=== PATIENT | male | born 1965 | race Caucasian/White ===

== ENCOUNTER 2022-04-10 05:57 | Inpatient (IN) | payer OTHER ==
[~2022-04-10] VITALS: Ht 172.7 cm; Wt 111.3 kg
[2022-04-10] MEDS ORDERED: ACETAMINOPHEN WITH CODEINE 300/30MG TABLET PO ONE (06:30)
[2022-04-10] MEDS ORDERED: COLCHICINE 0.6MG TABLET PO ONE (06:45)
[2022-04-10] MEDS ORDERED: MORPHINE SULFATE 4 MG/ML CPJ (NOT FOR IM USE) IV ONE (08:45)
[2022-04-10 09:10] LABS: BASOPHILS % 0.7 % (0.0-2.0); EOSINOPHILS % 1.6 % (0.0-5.0); HEMATOCRIT. 43.5 % (42.0-52.0); HEMOGLOBIN. 15.2 g/dL (14.0-18.0); LYMPHOCYTES % 31.3 % (20.0-50.0); MEAN CORPUSCULAR VOLUME 91.3 fL (80.0-94.0); MEAN PLATELET VOLUME 7.5 fl (7.4-10.4); MONOCYTES % 9.7 % (2.0-8.0); NEUTROPHILS % 56.7 % (40.0-76.0); PLATELET 228 x1000/uL (130-400); RED BLOOD CELL COUNT 4.77 mill/uL (4.7-6.1); RED CELL DISTRIBUTION WIDTH 14.3 % (11.6-14.6)
[2022-04-10 09:11] LABS: CHLORIDE 103 mEq/L (98-107)
[2022-04-10] MEDS ORDERED: ACETAMINOPHEN 325MG TABLET PO PRN (11:00)
[2022-04-10] MEDS ORDERED: ONDANSETRON HCL 4MG/2ML INJ IV PRN (11:00)
[2022-04-10] MEDS: ENOXAPARIN 30MG/0.3ML SYR SUBCUT SCH ×2 (11:00→22:32)
[2022-04-10] MEDS ORDERED: ATORVASTATIN CALCIUM 40MG TABLET PO SCH (21:00)
[2022-04-10] MEDS ORDERED: ZOLPIDEM TARTRATE 5MG TABLET PO PRN (22:00)
[2022-04-10] MEDS ORDERED: ACETAMINOPHEN WITH CODEINE 300/30MG TABLET PO PRN (22:00)
[2022-04-10] MEDS ORDERED: TRAMADOL 50MG TABLET PO PRN (22:00)
[2022-04-10] MEDS: COLCHICINE 0.6MG TABLET PO SCH (22:19)
[2022-04-10 22:30] VITALS: BP 155/104
[2022-04-10] MEDS: FUROSEMIDE 40MG TABLET PO SCH (22:32)
[2022-04-10] MEDS: GABAPENTIN 300MG CAPSULE PO SCH (22:33)
[2022-04-10] MEDS: AMLODIPINE 10MG TABLET PO SCH (22:33)
[2022-04-10] MEDS: ALLOPURINOL 300 MG TABLET PO SCH (22:34)
[2022-04-10] MEDS ORDERED: ATENOLOL 100 MG TABLET PO SCH (23:00)
[2022-04-11] VITALS: BP 101/70
[2022-04-11 00:10] VITALS: BP 124/78
[2022-04-11] MEDS: GABAPENTIN 300MG CAPSULE PO SCH ×2 (05:46→13:10)
[2022-04-11 08:00] VITALS: BP 131/77
[2022-04-11] MEDS ORDERED: APIXABAN 5 MG TABLET PO SCH (09:00)
[2022-04-11] MEDS ORDERED: ASPIRIN 81MG TABLET PO SCH (09:00)
[2022-04-11] MEDS: ALLOPURINOL 300 MG TABLET PO SCH (09:24)
[2022-04-11] MEDS: FUROSEMIDE 40MG TABLET PO SCH (09:24)
[2022-04-11] MEDS: AMLODIPINE 10MG TABLET PO SCH (09:24)
[2022-04-11] MEDS: COLCHICINE 0.6MG TABLET PO SCH (09:24)
[2022-04-11] MEDS ORDERED: ATENOLOL 50 MG TABLET PO SCH (10:00)
[2022-04-11 12:00] VITALS: BP 99/71
[2022-04-11 14:28] VITALS: BP 99/71
[2022-04-11] MEDS ORDERED: RIVAROXABAN 10 MG TABLET PO SCH (17:00)
[2022-04-11] MEDS ORDERED: CITALOPRAM HYDROBROMIDE 10MG TABLET PO SCH (21:00)
[2022-04-11] MEDS ORDERED: DOXAZOSIN MESYLATE 4MG TABLET PO SCH (21:00)
== END 2022-04-11 14:45 | disposition home or self-care (01) | DRG 556 ==
LOC: ER 05:57 → 6EST 10:10 → EDBEDREQ 10:15 → EDBEDREQSVC 12:45 → ENRESERV 14:11 → CANRESERV 14:11 → ENRESERV 19:29 → 7WST 23:40
PROVIDERS: ADMIT Family Medicine Adult Medicine; ATTEND Family Medicine Adult Medicine
DX: M25.562 Pain in left knee (principal); E66.9 Obesity, unspecified; I10 Essential (primary) hypertension; M10.9 Gout, unspecified; Z86.711 Personal history of pulmonary embolism; Z86.73 Personal history of transient ischemic attack (TIA), and cerebral infarction without residual deficits; Z68.37 Body mass index [BMI] 37.0-37.9, adult
CPT/HCPCS: 36415; 71045; 73560; 80053; 83880; 84484; 84550; 85025; 93971; 97162; 97535; 99285; J1650; J2270